=== PATIENT | female | born 1955 | race African-American/Black ===

== ENCOUNTER 2017-03-09 07:02 | Outpatient (CLI) | payer MEDICARE | END 2017-03-09 07:03 | disposition home or self-care (01) | LOC: BICMAMMO 07:02 | PROVIDERS: ATTEND Family Medicine | DX: R92.8 Other abnormal and inconclusive findings on diagnostic imaging of breast (principal); Z85.3 Personal history of malignant neoplasm of breast | CPT/HCPCS: G0204; G0279; 77066 ==

== ENCOUNTER 2018-03-13 09:42 | Outpatient (CLI) | payer MEDICARE | END 2018-03-13 09:43 | disposition home or self-care (01) | LOC: BICMAMMO 09:42 | PROVIDERS: ATTEND Surgery | DX: Z08 Encounter for follow-up examination after completed treatment for malignant neoplasm (principal); Z85.3 Personal history of malignant neoplasm of breast; R92.1 Mammographic calcification found on diagnostic imaging of breast | CPT/HCPCS: 77066; G0279 ==

== ENCOUNTER → 2018-03-29 | Day surgery (SDC) | payer MEDICARE ==
--- NOTE | 2018-03-29 09:10 | MMO ---
SPECIMEN RADIOGRAPH: Date: 03/29/18 INDICATION: Status post stereotactic biopsy of the upper outer quadrant right breast indeterminate calcifications . FINDINGS: Excised stereotactic right breast specimens are radiographed and do reveal several calcifications of interest. IMPRESSION: Calcifications of interest are present within the excised specimens. POS: DAVID
--- NOTE | 2018-03-29 09:12 | MMO ---
DIAGNOSTIC RIGHT MAMMOGRAM: Date: 03/29/18 CLINICAL HISTORY: Status post stereotactic biopsy and clip placement of right breast for indeterminate calcifications o f upper outer quadrant right female breast. FINDINGS: Heterogeneously dense breast parenchyma is present. There is evidence of recent biopsy within the upp er outer quadrant of the right breast with deployment of a marking clip and interval reduction in num pedro luis of the indeterminate clustering of microcalcifications within the upper outer quadrant of the rig ht breast. IMPRESSION: Interval stereotactic biopsy and clip marker placement involving upper outer quadrant right breast. POS: DAVID
--- NOTE | 2018-03-29 09:16 | MMO ---
STEREOTACTIC RIGHT BREAST BIOPSY BIOPSY MARKING CLIP DEPLOYMENT WITHIN UPPER OUTER QUADRANT RIGHT BREAST: Date: 03/29/18 INDICATION: Indeterminate cluster of calcifications within the upper outer right female breast. PROCEDURE: Informed consent was obtained. The patient was escorted to the procedural suite. The patient was plac ed in the prone position and the right breast was placed into mammographic compression and the calcif ications of interest were localized and targeted with stereotactic coordinates. After standard steril e prepping and draping was performed, topical anesthesia with buffered 1% lidocaine was achieved and a small skin incision was made, through which a 10 gauge vacuum-assisted stereotactic biopsy needle w as advanced to the leading edge of the calcifications, confirmed with stereotactic imaging and then d eployed within the site of calcifications. Subsequently, six core specimens were uneventfully obtaine d and were then radiographed, which did reveal calcifications of interest within the radiographed spe cimens. Needle was therefore removed. A biopsy marking clip was then advanced to and deployed within the biopsy site, confirmed with mammographic imaging. All devices were otherwise removed from the patient and the procedure was tolerated well without evid ence of unexpected complication. The patient was transferred to mammography to undergo postprocedural clip placement views of the [facility] t breast. IMPRESSION: Technically successful stereotactic biopsy of the right breast. Pathology results are pending. The patient will be notified of the results when they are received. POS: DAVID
== END ==
LOC: MAMMO 07:04
PROVIDERS: ATTEND Surgery
PROC: 0HBT3ZX Excision of Right Breast, Percutaneous Approach, Diagnostic (ICD-10-PCS; principal; 2018-03-29)
DX: N64.89 Other specified disorders of breast (principal); R92.8 Other abnormal and inconclusive findings on diagnostic imaging of breast; Z79.82 Long term (current) use of aspirin; Z79.899 Other long term (current) drug therapy
CPT/HCPCS: 19081; 76098; 88305

== ENCOUNTER 2019-03-20 09:17 | Outpatient (CLI) | payer MEDICARE ==
--- NOTE | 2019-03-20 09:57 | MMO ---
Bilateral MAMMO Bilat Diag [facility]. CLINICAL HISTORY: Patient is 64 years old and is seen for diagnostic exam. The patient has a history of Ultrasound guided core biopsy procedure revealed invasive poorly differntiated carcinoma. in the right breast in November,. The patient has a history of right Stereotatic Biopsy in March, - benign, right Ultrasound Guided Core Biopsy in November, and right Lumpectomy in November, - malignant. VIEWS: The views performed were: bilateral craniocaudal with tomosynthesis; bilateral mediolateral oblique with tomosynthesis; and bilateral mediolateral with tomosynthesis. FILMS COMPARED: The present examination has been compared to prior imaging studies performed at [facility] on 09/01/2016, 03/09/2017, 03/13/2018 and 03/29/2018. This study has been interpreted with the assistance of computer-aided detection. MAMMOGRAM FINDINGS: The breasts are heterogeneously dense, which could obscure a lesion on mammography. Finding 1: There are stable benign appearing calcifications seen in both breasts. Finding 2: There is a stable post-surgical scar seen in the right breast. There are no suspicious masses, suspicious calcifications, or new areas of architectural distortion. IMPRESSION: THERE IS NO MAMMOGRAPHIC EVIDENCE OF MALIGNANCY. A ROUTINE FOLLOW-UP MAMMOGRAM IN 1 YEAR IS RECOMMENDED. THE RESULTS OF THIS EXAM WERE SENT TO THE PATIENT. ACR BI-RADS Category 2 - Benign finding MAMMOGRAPHY NOTE: 1. A negative mammogram report should not delay a biopsy if a dominant of clinically suspicious mass is present. 2. Approximately 10% to 15% of breast cancers are not detected by mammography. 3. Adenosis and dense breasts may obscure an underlying neoplasm. Reported by: FAVIO SANCHEZ MD Electonically Signed: [id number]
== END 2019-03-20 09:18 | disposition home or self-care (01) ==
LOC: BICMAMMO 09:17
PROVIDERS: ATTEND Surgery
DX: Z08 Encounter for follow-up examination after completed treatment for malignant neoplasm (principal); Z85.3 Personal history of malignant neoplasm of breast
CPT/HCPCS: 77066; G0279

== ENCOUNTER 2020-03-29 09:29 | Outpatient (CLI) | payer MEDICARE ==
--- NOTE | 2020-03-29 10:18 | MMO ---
Bilateral MAMMO Bilat Diag [facility]. CLINICAL HISTORY: Patient is 65 years old and is seen for diagnostic exam. The patient has no family history of breast cancer. The patient has a history of Ultrasound guided core biopsy procedure revealed invasive poorly differntiated carcinoma. in the right breast in November,. The patient has a history of right Stereotatic Biopsy in March, - benign, right Ultrasound Guided Core Biopsy in November, and right Lumpectomy in November, - malignant. VIEWS: The views performed were: bilateral craniocaudal with tomosynthesis; bilateral mediolateral oblique with tomosynthesis; bilateral mediolateral with tomosynthesis; left mediolateral oblique; and right exaggerated craniocaudal. FILMS COMPARED: The present examination has been compared to prior imaging studies performed at [facility] on 03/09/2017, 03/13/2018, 03/29/2018 and 03/20/2019. This study has been interpreted with the assistance of computer-aided detection. MAMMOGRAM FINDINGS: There are scattered fibroglandular densities. Finding 1: There is an area of architectural distortion with associated post-surgical scar seen in the right breast. Finding 2: There are stable benign appearing calcifications seen in both breasts. There are no suspicious masses, suspicious calcifications, or new areas of architectural distortion. IMPRESSION: THERE IS NO MAMMOGRAPHIC EVIDENCE OF MALIGNANCY. A ROUTINE FOLLOW-UP MAMMOGRAM IN 1 YEAR IS RECOMMENDED. THE RESULTS OF THIS EXAM WERE SENT TO THE PATIENT. ACR BI-RADS Category 2 - Benign finding MAMMOGRAPHY NOTE: 1. A negative mammogram report should not delay a biopsy if a dominant of clinically suspicious mass is present. 2. Approximately 10% to 15% of breast cancers are not detected by mammography. 3. Adenosis and dense breasts may obscure an underlying neoplasm. Reported by: SONYA VIZCAINO MD Electonically Signed: [id number]
== END 2020-03-29 09:30 | disposition home or self-care (01) ==
LOC: BICMAMMO 09:29
PROVIDERS: ATTEND Obstetrics & Gynecology
DX: R92.8 Other abnormal and inconclusive findings on diagnostic imaging of breast (principal)
CPT/HCPCS: 77066; G0279

== ENCOUNTER 2021-04-07 10:00 | Outpatient (CLI) | payer MEDICARE | END 2021-04-07 10:01 | disposition home or self-care (01) | LOC: BICMAMMO 10:00 | PROVIDERS: ATTEND Internal Medicine Hematology & Oncology | DX: Z12.31 Encounter for screening mammogram for malignant neoplasm of breast (principal); Z85.3 Personal history of malignant neoplasm of breast | CPT/HCPCS: 77063; 77067 ==

== ENCOUNTER 2021-07-25 13:51 | Outpatient (CLI) | payer OTHER | END 2021-07-25 13:52 | disposition home or self-care (01) | LOC: RAD 13:51 | PROVIDERS: ATTEND Internal Medicine Critical Care Medicine | DX: R06.00 Dyspnea, unspecified (principal); I51.7 Cardiomegaly | CPT/HCPCS: 71046 ==

== ENCOUNTER 2021-09-04 19:30 | Outpatient (CLI) | payer OTHER | END 2021-09-04 19:31 | disposition home or self-care (01) | LOC: SLEEPLAB 19:30 | PROVIDERS: ATTEND Internal Medicine Critical Care Medicine | DX: G47.33 Obstructive sleep apnea (adult) (pediatric) (principal); R06.83 Snoring; G47.10 Hypersomnia, unspecified; I48.91 Unspecified atrial fibrillation; I10 Essential (primary) hypertension; R06.82 Tachypnea, not elsewhere classified; G47.00 Insomnia, unspecified | CPT/HCPCS: 95810 ==

== ENCOUNTER 2021-10-21 19:00 | Outpatient (CLI) | payer OTHER | END 2021-10-21 19:01 | disposition home or self-care (01) | LOC: SLEEPLAB 19:00 | PROVIDERS: ATTEND Internal Medicine Critical Care Medicine | DX: G47.33 Obstructive sleep apnea (adult) (pediatric) (principal); R06.83 Snoring; G47.10 Hypersomnia, unspecified; G47.31 Primary central sleep apnea; E66.9 Obesity, unspecified; Z68.37 Body mass index [BMI] 37.0-37.9, adult | CPT/HCPCS: 95811 ==

== ENCOUNTER 2022-04-24 11:57 | Outpatient (CLI) | payer OTHER | END 2022-04-24 11:58 | disposition home or self-care (01) | LOC: BICMAMMO 11:57 | PROVIDERS: ATTEND Student in an Organized Health Care Education/Training Program | DX: Z12.31 Encounter for screening mammogram for malignant neoplasm of breast (principal); Z80.3 Family history of malignant neoplasm of breast; Z91.89 Other specified personal risk factors, not elsewhere classified; Z98.890 Other specified postprocedural states | CPT/HCPCS: 77063; 77067 ==

== ENCOUNTER 2023-04-26 12:56 | Outpatient (CLI) | payer OTHER | END 2023-04-26 12:57 | disposition home or self-care (01) | LOC: BICMAMMO 12:56 | PROVIDERS: ATTEND Student in an Organized Health Care Education/Training Program | DX: Z12.31 Encounter for screening mammogram for malignant neoplasm of breast (principal); N64.89 Other specified disorders of breast; Z80.3 Family history of malignant neoplasm of breast; Z85.3 Personal history of malignant neoplasm of breast; Z91.89 Other specified personal risk factors, not elsewhere classified; Z98.890 Other specified postprocedural states | CPT/HCPCS: 77063; 77067 ==

== ENCOUNTER 2023-04-30 14:38 | Outpatient (CLI) | payer OTHER | END 2023-04-30 14:39 | disposition home or self-care (01) | LOC: BICMAMMO 14:38 | PROVIDERS: ATTEND Student in an Organized Health Care Education/Training Program | DX: N64.89 Other specified disorders of breast (principal); N63.22 Unspecified lump in the left breast, upper inner quadrant | CPT/HCPCS: 76642; 77065; G0279 ==